=== PATIENT | female | born 1950 | race Caucasian/White ===

== ENCOUNTER → 2021-02-11 | Outpatient (CLI) | payer MEDICARE, OTHER ==
[~2021-02-11] MED LIST: DITROPAN 5 MG TA5 MG PO; FLEXERIL 10 MG10 MG PO; HYDROCHLOROTHIA25 MG PO; LOSARTAN POTASS50 MG PO; NEURONTIN 300300 MG PO; NORTRIPTYLINE H50 MG PO; OMEPRAZOLE40 MG PO; ULTRAM50 MG PO
== END ==
LOC: MAMO 08:38
DX: Z12.31 Encounter for screening mammogram for malignant neoplasm of breast (principal); R19.07 Generalized intra-abdominal and pelvic swelling, mass and lump
CPT/HCPCS: 76856; 77063; 77067